=== PATIENT | male | born 1970 | race Caucasian/White ===

== ENCOUNTER 2016-09-12 09:37 | Emergency (ER) | payer OTHER, MEDICAID ==
[~2016-09-12] VITALS: Wt 89.0 kg
[~2016-09-12 09:37] MED LIST: NO MEDS
[2016-09-12] MEDS ORDERED: IBUPROFEN 800 MG TAB PO ONE (11:00)
--- NOTE | 2016-09-12 11:05 | RADRPT ---
PROCEDURE: Chest x-ray CLINICAL INDICATION: Chest pain TECHNIQUE: Chest single view COMPARISON: None FINDINGS: The heart is normal in size. The pulmonary vessels are normal in caliber. The lungs are clear. Th e costophrenic angles are sharp. The visualized bony thorax is unremarkable. IMPRESSION: No acute cardiopulmonary disease. RPTAT: HH .Josh Patel MD, Date Time Electronically viewed and signed by .Josh Patel MD, on 09/12/2016 11:04 .W/
[2016-09-12] MEDS ORDERED: IBUP800T25 PO (11:27)
--- NOTE | 2016-09-12 11:40 | ERD ---
ER Documentation Chief Complaint Date/Time DATE: 09/12/16 TIME: 11:35 Chief Complaint back pain non traumatic for the past few weeks. no neuro def HPI 35-year-old male with no significant past medical history presents the ED complaining of upper left chest wall pain as well as upper left back pain. States that this has been going on for the last 9 years. Reports that it has been intermittent for 1 month. Reports that he has been taking Advil and Tylenol with slight relief of his symptoms. States that massaging the area makes it feel better. States that the pain is reproducible with touch. Denies any nausea, vomiting, headache, dizziness, weakness, abdominal pain, cough, fever. Denies any trauma or heavy lifting. Denies any smoking, alcohol use, drug use. Denies any family history of heart attacks. Denies any recent traveling. Denies any calf pain. ROS All systems reviewed and are negative except as per history of present illness. Medications Home Meds Active Scripts Ibuprofen* (Motrin*) 800 Mg Tab, 800 MG PO Q6, #30 TAB Prov:MELA VALENCIA PA-C 09/12/16 Reported Medications [No Meds] No Conflict Check 09/05/10 Allergies Allergies: Coded Allergies: No Known Drug Allergies (Verified Allergy, Mild, 03/09/12) PMhx/Soc Medical and Surgical Hx: pt denies Medical Hx, pt denies Surgical Hx History of Surgery: No Anesthesia Reaction: No Hx Neurological Disorder: No Hx Respiratory Disorders: No Hx Cardiac Disorders: No Hx Psychiatric Problems: No Hx Miscellaneous Medical Probl: No Hx Alcohol Use: No Hx Substance Use: No Hx Tobacco Use: No Smoking Status: Never smoker Physical Exam Vitals Vital Signs Date Time Temp Pulse Resp B/P Pulse Ox O2 Delivery O2 Flow Rate FiO2 09/12/16 09:54 98.6 59 20 126/78 98 Physical Exam Const: [id number], well-nourished. In no acute distress. Head: Atraumatic, normocephalic Eyes: Normal Conjunctiva without injection. No purulent discharge. PERRL. EOMI ENT: Normal external ear. Ear canal without erythema. Tympanic membrane pearly patton without effusion or bulging. Nasal canal clear with normal turbinates. Moist oropharynx without tonsillar exudates. Non-erythematous pharynx. Uvula midline. No drooling. No trismus. Neck: Full range of motion. No meningismus. No cervical lymphadenopathy. Resp: Clear to auscultation bilaterally. No wheezing, rhonchi, rales, or crackles. No accessory muscle use. No retractions. Cardio: Regular rate and rhythm. No murmurs, rubs or gallops. Chest: Palpation of left anterior chest reproduces pain. Abd: Soft, non tender, non distended. Normal bowel sounds. No palpable masses. No rebound tenderness. No guarding. Skin: No petechiae or rashes Back: No midline tenderness. No CVA tenderness. Ext: No cyanosis, or edema. Neur: Awake and alert. Psych: Normal Mood and Affect Results 24 hrs Current Medications Medications (Trade) Dose Ordered Sig/Alejandro Route PRN Reason Start Time Stop Time Status Last Admin Dose Admin Ibuprofen (Motrin) 800 mg ONCE ONCE PO 09/12/16 11:00 09/12/16 11:01 DC 09/12/16 10:48 Procedures/MDM This is a 45-year-old male with no significant past medical history presents the ED complaining of left upper and left upper back pain that started intermittently 1 month ago, however has been going on for 9 years. Patient is afebrile and nontoxic-appearing patient has normal vital signs. EKG, chest x- ray was ordered to further evaluate patient. Patient was treated here in the ED with ibuprofen with improvement of his pain. EKG reviewed and interpreted by Dr. Nielsen Rate/Rhythm: [56 bpm, Sinus bradycardia with sinus arrhythmia] No ectopy, no ST elevations, normal axis. QRS, ST, T-waves: [No changes consistent w/ acute ischemia] Impression: [No evidence of ischemia or arrhythmia] PROCEDURE: Chest x-ray CLINICAL INDICATION: Chest pain TECHNIQUE: Chest single view COMPARISON: None FINDINGS: The heart is normal in size. The pulmonary vessels are normal in caliber. The lungs are clear. The costophrenic angles are sharp. The visualized bony thorax is unremarkable. IMPRESSION: No acute cardiopulmonary disease. Patient likely has chest wall pain and muscular thoracic back pain. Low suspicion for acute myocardial infarction, pneumothorax, pneumonia, cardiac tamponade, pulmonary embolism, AAA, aortic dissection, Boerhaave's syndrome, cardiac dysrhythmias,meningitis, intracranial bleed, seizure, stroke, TIA or other emergent conditions. Based on patient's clinical exam findings, patient likely has chest wall pain. Discharge medications: Ibuprofen Follow up with primary care physician in 1-2 days. Instructed patient to return to the ED sooner for any worsening symptoms. Patient's questions were answered. Patient understood and agreed with discharge plan. Patient discharged stable. Departure Diagnosis: Primary Impression: Chest wall pain Additional Impression: Back pain Back pain location: thoracic back pain Chronicity: chronic Back pain laterality: left Qualified Code: M54.6 - Chronic left-sided thoracic back pain Condition: Stable Patient Instructions: Back Pain (Acute Or Chronic), Chest Wall Pain, Costochondritis Referrals: [facility] YOU HAVE RECEIVED A MEDICAL SCREENING EXAM AND THE RESULTS INDICATE THAT YOU DO NOT HAVE A CONDITION THAT REQUIRES URGENT TREATMENT IN THE EMERGENCY DEPARTMENT. FURTHER EVALUATION AND TREATMENT OF YOUR CONDITION CAN WAIT UNTIL YOU ARE SEEN IN YOUR DOCTORS OFFICE WITHIN THE NEXT 1-2 DAYS. IT IS YOUR RESPONSIBILITY TO MAKE AN APPOINTMENT FOR FOLOW-UP CARE. IF YOU HAVE A PRIMARY DOCTOR --you should call your primary doctor and schedule an appointment IF YOU DO NOT HAVE A PRIMARY DOCTOR YOU CAN CALL OUR PHYSICIAN REFERRAL HOTLINE AT IF YOU CAN NOT AFFORD TO SEE A PHYSICIAN YOU CAN CHOSE FROM THE FOLLOWING [facility] [address] [facility]. [facility] [address] [facility]. [facility] [address] [facility] [facility] [address] [facility] [address]. [facility]. [address] [facility]. [facility] YOU HAVE RECEIVED A MEDICAL SCREENING EXAM AND THE RESULTS INDICATE THAT YOU DO NOT HAVE A CONDITION THAT REQUIRES URGENT TREATMENT IN THE EMERGENCY DEPARTMENT. FURTHER EVALUATION AND TREATMENT OF YOUR CONDITION CAN WAIT UNTIL YOU ARE SEEN IN YOUR DOCTORS OFFICE WITHIN THE NEXT 1-2 DAYS. IT IS YOUR RESPONSIBILITY TO MAKE AN APPOINTMENT FOR FOLOW-UP CARE. IF YOU HAVE A PRIMARY DOCTOR --you should call your primary doctor and schedule and appointment IF YOU DO NOT HAVE A PRIMARY DOCTOR YOU CAN CALL OUR PHYSICIAN REFERRAL HOTLINE AT . IF YOU CAN NOT AFFORD TO SEE A PHYSICIAN YOU CAN CHOSE FROM THE FOLLOWING [facility] INSTITUTIONS: [facility] [address] [place] [address] [facility] [address] [place] [address] [facility] [address] [place] [address] [facility] URGENT CARE/SPECIALTIES Additional Instructions: FOLLOW UP WITH YOUR PRIMARY CARE PHYSICIAN TOMORROW.Return to this facility if you are not improving as expected. MELA VALENCIA PA-C Sep 12, 2016 11:40
== END 2016-09-12 11:33 | disposition home or self-care (01) ==
LOC: FTE 09:37
DX: R07.89 Other chest pain (principal); M54.6 Pain in thoracic spine
CPT/HCPCS: 71010; 93005

== ENCOUNTER 2016-09-16 15:07 | Emergency (ER) | END 2016-09-16 18:55 | disposition home or self-care (01) | DX: R50.9 Fever, unspecified (principal); J02.9 Acute pharyngitis, unspecified ==

== ENCOUNTER 2017-05-01 10:16 | Emergency (ER) | payer OTHER ==
[~2017-05-01] VITALS: Ht 167.6 cm; Wt 88.0 kg
[~2017-05-01 10:16] MED LIST changes: +IBUP800T25 PO; +OSLT75C PO
[2017-05-01 10:26] VITALS: Ht 167.6 cm; Wt 88.0 kg
--- NOTE | 2017-05-01 11:25 | ERD ---
ER Documentation Chief Complaint Date/Time DATE: 05/01/17 TIME: 11:19 Chief Complaint Complains of sob x 2 days HPI 46-year-old male present ED reports that he is not "breathing too well". When asked further, he states that he takes a deep breath once in a while. Patient also reports left-sided chest pain from time to time, usually associated with movement. He does not have chest pain at this time. Patient stated that there is mold in his apartment, he is concerned that his symptoms may be due to mold. Denies fever or chills. Denies cough or runny nose. ROS All systems reviewed and are negative except as per history of present illness. Medications Home Meds Active Scripts Oseltamivir Phosphate* (Tamiflu*) 75 Mg Capsule, 75 MG PO BID for 5 Days, #10 CAP Prov:YUE HAYWARD PA-C 09/16/16 Ibuprofen* (Motrin*) 800 Mg Tab, 800 MG PO Q6, #30 TAB Prov:MELA VALENCIA PA-C 09/12/16 Reported Medications [No Meds] No Conflict Check 09/05/10 Allergies Allergies: Coded Allergies: No Known Drug Allergies (Verified Allergy, Mild, 03/09/12) PMhx/Soc Medical and Surgical Hx: pt denies Medical Hx History of Surgery: No Anesthesia Reaction: No Hx Neurological Disorder: No Hx Respiratory Disorders: No Hx Cardiac Disorders: No Hx Psychiatric Problems: No Hx Miscellaneous Medical Probl: No Hx Alcohol Use: No Hx Substance Use: No Hx Tobacco Use: No Physical Exam Vitals Vital Signs Date Time Temp Pulse Resp B/P Pulse Ox O2 Delivery O2 Flow Rate FiO2 05/01/17 10:26 97.5 57 20 117/78 98 Physical Exam General: Well-developed, well-nourished, conscious and coherent, in no distress Skin: Warm and dry without rash, good texture and turgor Head: Normocephalic without evidence of trauma Eyes: Sclera and conjunctivae normal; pupils equal, round, and reactive to light; extraocular movements are intact Ears: Canals are patent. Tympanic membranes are clear Nose/Face: Without rhinorrhea Mouth/throat: Mucous membranes are moist. Posterior pharynx clear without erythema or exudates Neck: Supple without meningismus or adenopathy. Carotids are equal. Trachea midline. No bruits or JVD Chest: Normal AP diameter. Good expansion without retractions. Nontender. Lungs are clear to auscultate bilaterally with good tidal volume. O2 sat 98%, which is within normal limits. Heart: Regular rate and rhythm. No murmur, rub, or gallops heard Extremities: Full range of motion. Good strength bilaterally. No clubbing, cyanosis, or edema. Peripheral pulses are intact. Sensation intact Neuro: Alert and oriented 4, GCS 15. Cranial nerves grossly intact. Motor and sensory exams nonfocal. Moves all extremities. Speech clear. Gait normal Procedures/MDM Well-appearing 46-year-old male present ED with self perceived shortness of breath. Patient does not have any respiratory distress, he is breathing normally. He is O2 sat is 90%, within normal limits. His lungs are clear to auscultate. He does not have any symptoms of allergic rhinitis. I advised patient that his exam is completely normal. If he is concerned about mold in his apartment, he can clean it up with bleach. He may also contact our primary management to fix any water leaks. Patient appears well, stable for discharge and outpatient management. Medical decision making shared with patient and family. Education provided to patient and family. Patient and family expressed understanding of the plan. Medications on discharge: None. Follow-up: Primary care provider as needed. Disclaimer: Inadvertent spelling and grammatical errors are likely due to EHR/ dictation software use and do not reflect on the overall quality of patient care. Also, please note that the electronic time recorded on this note does not necessarily reflect the actual time of the patient encounter. Departure Diagnosis: Primary Impression: Worried well Condition: Stable Patient Instructions: Controlling Allergens: Mold, Normal Exam, (Child) (Adult) Referrals: [facility], [facility] YOU HAVE RECEIVED A MEDICAL SCREENING EXAM AND THE RESULTS INDICATE THAT YOU DO NOT HAVE A CONDITION THAT REQUIRES URGENT TREATMENT IN THE EMERGENCY DEPARTMENT. FURTHER EVALUATION AND TREATMENT OF YOUR CONDITION CAN WAIT UNTIL YOU ARE SEEN IN YOUR DOCTORS OFFICE WITHIN THE NEXT 1-2 DAYS. IT IS YOUR RESPONSIBILITY TO MAKE AN APPOINTMENT FOR FOLOW-UP CARE. IF YOU HAVE A PRIMARY DOCTOR --you should call your primary doctor and schedule an appointment IF YOU DO NOT HAVE A PRIMARY DOCTOR YOU CAN CALL OUR PHYSICIAN REFERRAL HOTLINE AT IF YOU CAN NOT AFFORD TO SEE A PHYSICIAN YOU CAN CHOSE FROM THE FOLLOWING [facility], [facility] [address] [facility] [address] [facility] [facility] [address] [facility]. [facility] [address] [facility]. [facility] [address] [facility]. [facility] [phone] [facility]. [facility] [address] Additional Instructions: Follow up with your primary provider. DAVID NUGENT NP May 01, 2017 11:25
== END 2017-05-01 14:06 | disposition home or self-care (01) ==
LOC: FTE 10:16
DX: R06.02 Shortness of breath (principal); Z71.1 Person with feared health complaint in whom no diagnosis is made
CPT/HCPCS: 99282

== ENCOUNTER 2017-10-27 19:37 | Emergency (ER) | END 2017-10-27 21:21 | disposition left against medical advice (07) ==

== ENCOUNTER 2017-11-09 07:49 | Emergency (ER) | END 2017-11-09 10:13 | disposition home or self-care (01) ==

== ENCOUNTER 2019-04-13 09:23 | Emergency (ER) | payer OTHER ==
[~2019-04-13] VITALS: Ht 167.6 cm; Wt 88.0 kg
[~2019-04-13 09:23] MED LIST changes: +IBUP-1542 PO; -IBUP800T25 PO; +IBUP800T48 PO; +OSEL75CA23 PO; -OSLT75C PO
[2019-04-13 09:30] VITALS: Ht 167.6 cm; Wt 88.0 kg
[2019-04-13 10:54] VITALS: BP 131/69; PULSE 64; RESP 18
== END 2019-04-13 10:56 | disposition home or self-care (01) ==
LOC: FTE 09:23
DX: S60.561A Insect bite (nonvenomous) of right hand, initial encounter (principal); S60.562A Insect bite (nonvenomous) of left hand, initial encounter; S80.861A Insect bite (nonvenomous), right lower leg, initial encounter; S80.862A Insect bite (nonvenomous), left lower leg, initial encounter; W57.XXXA Bitten or stung by nonvenomous insect and other nonvenomous arthropods, initial encounter; Y92.9 Unspecified place or not applicable
CPT/HCPCS: 80053; 85025; 99283